=== PATIENT | male | born 1995 | race Caucasian/White ===

== ENCOUNTER → 2023-05-03 | Outpatient (CLI) | payer OTHER ==
[~2023-05-03] MED LIST: ACEBUTCAFT PO; ALBU90I INH; ALBU90OI; ALBU90OI INH; AMOX500 PO; CEPH500 PO; CYCL10 PO; DOXY100T53 PO; HYDACE5 PO; HYDPAM25 PO; IBUP800 PO; LORA1 PO; METPRE4DP PO; NAPR500 PO; OMEP20ER PO; OMEP40CA12 PO; PROC10 PO; RANI150 PO; RXHYDACE PO; TRAM50 PO
[2023-05-03 12:59] LABS: Bun/Creatinine Ratio 18.2 (12.0-20.0); Calcium, Blood 9.8 mg/dL (8.5-10.1); Creatinine, Blood 1.1 mg/dL (0.60-1.20); Potassium, Blood 4.4 mmol/L (3.5-5.5)
== END | disposition home or self-care (01) ==
LOC: LAB SHORT 10:12 → LAB 10:12
PROVIDERS: Nurse Practitioner Family
DX: I10 Essential (primary) hypertension (principal)
CPT/HCPCS: 80048

== ENCOUNTER → 2023-11-26 | Outpatient (CLI) | payer OTHER ==
[2023-11-26 14:28] LABS: Albumin, Blood 4.1 g/dL (3.4-5.0); Albumin/Globulin Ratio 1.2 (0.8-1.8); Bilirubin, Total 0.6 mg/dL (0.1-1.0); Bun/Creatinine Ratio 14.7 (12.0-20.0); Calcium, Blood 9.3 mg/dL (8.5-10.1); Creatinine, Blood 1.02 mg/dL (0.60-1.20); Globulin, Blood 3.3 g/dL (2.2-4.0); Potassium, Blood 4.5 mmol/L (3.5-5.5); Total Protein, Blood 7.4 g/dL (6.4-8.2)
== END | disposition home or self-care (01) ==
LOC: LAB 11:14 → LAB SHORT 11:14
PROVIDERS: Nurse Practitioner Family
DX: I10 Essential (primary) hypertension (principal)
CPT/HCPCS: 80053